=== PATIENT | male | born 1950 | race Caucasian/White ===

== ENCOUNTER → 2017-11-04 | Outpatient (CLI) | payer MEDICARE ==
--- NOTE | 2017-11-04 09:37 | RADIOLOGY REPORT (SQ) ---
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 Images reviewed with lung, soft tissue and bone windows. Reconstructed coronal and sagittal MPR images reviewed. All images stored on PACS. All CT scanners at this facility use dose modulation, iterative reconstruction, and/or weight based d osing when appropriate to reduce radiation dose to as low as reasonably achievable (ALARA). [facility]: Dose Right [facility]: CareDose [facility]: Dose Right [facility]: Teradose 4D [facility]: [employer] CONTRAST TYPE AND DOSE: contrast/concentration: Isovue 370.00 mg/ml; Total Contrast Delivered: 80.0 ml; Total Saline Delivered: 55.0 ml RENAL FUNCTION: Creatinine 1.0 RADIATION DOSE: CT Rad equipment meets quality standard of care and radiation dose reduction techniq ues were employed. CTDIvol: 7.7 mGy. DLP: 300 mGy-cm. . LIMITATIONS: None. FINDINGS: LUNGS AND PLEURA: No opacities, nodules, masses. No pneumothorax. No effusions. HILAR AND MEDIASTINAL STRUCTURES: No identified masses or abnormal nodes. HEART AND VASCULAR STRUCTURES: No aneurysm or dissection. No central pulmonary emboli. No pericardi al effusion. HARDWARE: Right-sided permanent central line tip superior vena cava UPPER ABDOMEN: Normal size spleen at the upper edge of the abdomen. Less than 2 cm nodule in the pos teromedial spleen could correlate with patient's history of CLL. THYROID AND OTHER SOFT TISSUES: Thyroid unremarkable. No bulky axillary or supraclavicular adenopath y. BONES: No significant finding. OTHER: No other significant finding. IMPRESSION: ESSENTIALLY NORMAL CT OF THE CHEST WITH IV CONTRAST. TECHNICAL DOCUMENTATION: JOB ID: [id number] Quality ID # [id number]: Final reports with documentation of one or more dose reduction techniques (e.g., Au tomated exposure control, adjustment of the mA and/or kV according to patient size, use of iterative reconstruction technique) 2010 [employer]- All Rights Reserved Reading location - IP/workstation name: [facility]
== END ==
LOC: RAD 08:11
PROVIDERS: ATTEND Internal Medicine Hematology & Oncology
DX: C91.10 Chronic lymphocytic leukemia of B-cell type not having achieved remission (principal); C43.39 Malignant melanoma of other parts of face
CPT/HCPCS: 71260

== ENCOUNTER → 2018-09-23 | Outpatient (CLI) | payer MEDICARE, OTHER ==
--- NOTE | 2018-09-23 08:23 | RADIOLOGY REPORT (SQ) ---
EXAM DESCRIPTION: CT CHEST WITH COMPLETED DATE/TIME: 09/23/2018 8:06 am REASON FOR STUDY: C91.10 CHRONIC LYMPHOCYTIC LEUK OF B-CELL TYPE NOT ACHIEVE REMIS C91.10 CHRONIC L YMPHOCYTIC LEUK OF B-CELL TYPE NOT ACHIEVE R COMPARISON: 11/04/2017. TECHNIQUE: CT scan of the chest performed using helical scanning technique with dynamic intravenous contrast injection. Images reviewed with lung, soft tissue and bone windows. Reconstructed coronal and sagittal MPR and MIP images reviewed. All images stored on PACS. All CT scanners at this facility use dose modulation, iterative reconstruction, and/or weight based d osing when appropriate to reduce radiation dose to as low as reasonably achievable (ALARA). [facility]: Dose Right [facility]: CareDose [facility]: Dose Right [facility]: Teradose 4D [facility]: [employer] CONTRAST TYPE AND DOSE: contrast/concentration: Isovue 350.00 mg/ml; Total Contrast Delivered: 80.0 ml; Total Saline Delivered: 55.0 ml RENAL FUNCTION: BUN 17 creatinine 0.9. RADIATION DOSE: CT Rad equipment meets quality standard of care and radiation dose reduction techniq ues were employed. CTDIvol: 10.0 mGy. DLP: 385 mGy-cm. . LIMITATIONS: None. FINDINGS: LUNGS AND PLEURA: No opacities, nodules, masses. No pneumothorax. No effusions. HILAR AND MEDIASTINAL STRUCTURES: No identified masses or abnormal nodes. HEART AND VASCULAR STRUCTURES: No aneurysm or dissection. No central pulmonary emboli. No pericardi al effusion. HARDWARE: None in the chest. UPPER ABDOMEN: Small indistinct low-attenuation lesion in the spleen unchanged. Limited exam. THYROID AND OTHER SOFT TISSUES: No masses. No adenopathy. BONES: No significant finding. OTHER: No other significant finding. IMPRESSION: NORMAL CT OF THE CHEST WITH IV CONTRAST. SMALL SPLENIC LESION IS UNCHANGED. TECHNICAL DOCUMENTATION: JOB ID: [id number] Quality ID # [id number]: Final reports with documentation of one or more dose reduction techniques (e.g., Au tomated exposure control, adjustment of the mA and/or kV according to patient size, use of iterative reconstruction technique) 2010 [employer]- All Rights Reserved Reading location - IP/workstation name: [email or web address] LUZ
== END ==
LOC: RAD 09:30
PROVIDERS: ATTEND Internal Medicine Hematology & Oncology
DX: C91.10 Chronic lymphocytic leukemia of B-cell type not having achieved remission (principal); C43.39 Malignant melanoma of other parts of face
CPT/HCPCS: 71260

== ENCOUNTER → 2019-03-24 | Outpatient (CLI) | payer MEDICARE, OTHER ==
--- NOTE | 2019-03-24 09:26 | RADIOLOGY REPORT (SQ) ---
EXAM DESCRIPTION: CT CHEST WITHOUT COMPLETED DATE/TIME: 03/24/2019 8:02 am REASON FOR STUDY: LEUKEMIA (C91.10) C91.10 CHRONIC LYMPHOCYTIC LEUK OF B-CELL TYPE NOT ACHIEVE R COMPARISON: 09/23/2018 TECHNIQUE: CT scan performed of the chest without intravenous contrast. Images reviewed with lung, soft tissue and bone windows. Reconstructed coronal and sagittal MPR images reviewed. All images st ored on PACS. All CT scanners at this facility use dose modulation, iterative reconstruction, and/or weight based d osing when appropriate to reduce radiation dose to as low as reasonably achievable (ALARA). [facility]: Dose Right [facility]: CareDose [facility]: Dose Right [facility]: Teradose 4D [facility]: [employer] RADIATION DOSE: CT Rad equipment meets quality standard of care and radiation dose reduction techniq ues were employed. CTDIvol: 7.9 mGy. DLP: 316 mGy-cm. mGy. LIMITATIONS: No technical limitations. FINDINGS: LUNGS AND PLEURA: No masses, infiltrates, or pneumothorax. No pleural effusions or pleura l calcifications. HILAR AND MEDIASTINAL STRUCTURES: There are small stable mediastinal lymph nodes. These are nonspeci fic. HEART AND VASCULAR STRUCTURES: No aneurysm. No pericardial effusion. UPPER ABDOMEN: Stable in appearance with small hypoattenuating splenic lesion. THYROID AND OTHER SOFT TISSUES: No thyroid lesions. There is bilateral axillary adenopathy. This co uld be reactive or neoplastic. The nodes are slightly larger in size when compared to prior exam. BONES: No significant finding. HARDWARE: None in the chest. OTHER: No other significant findings. IMPRESSION: 1. Bilateral axillary adenopathy slightly increased when compared to prior study. The largest node is on the right and measures 12.1 mm. 2. Small mediastinal lymph nodes also unchanged from prior study. TECHNICAL DOCUMENTATION: JOB ID: [id number] Quality ID # [id number]: Final reports with documentation of one or more dose reduction techniques (e.g., Au tomated exposure control, adjustment of the mA and/or kV according to patient size, use of iterative reconstruction technique) 2010 [employer]- All Rights Reserved Reading location - IP/workstation name: [email or web address]
== END ==
LOC: RAD 07:52
PROVIDERS: ATTEND Internal Medicine Hematology & Oncology
DX: C91.10 Chronic lymphocytic leukemia of B-cell type not having achieved remission (principal)
CPT/HCPCS: 71250

== ENCOUNTER 2020-05-05 16:02 | Inpatient (IN) | payer MEDICARE, OTHER ==
--- NOTE | 2020-05-05 16:14 | ER Document Report ---
ED Medical Screen (RME) - General Chief Complaint: Abdominal Pain Stated Complaint: ABDOMINAL PAIN Time Seen by Provider: 05/05/20 16:08 Primary Care Provider: RIRI CASTRO MD [Primary Care Provider] - Follow up as needed Mode of Arrival: Ambulatory Information source: Patient Notes: Patient presents complaining of abdominal pain for the past week. Patient state s he did have a fever a few days ago but none today. Patient denies any nausea vomiting or diarrhea. Patient denies any urinary symptoms. Reports a history of hypertension, cholesterol, melanoma which is in remission and lymphatic lymphoma which is in remission. I have greeted and performed a rapid initial assessment of this patient. A comprehensive ED assessment and evaluation of the patient, analysis of test results and completion of the medical decision making process will be conducted by additional ED providers. TRAVEL OUTSIDE OF THE [place] IN LAST 30 DAYS: No Physical Exam - Vital signs Vitals: Temp Pulse Resp BP Pulse Ox 98.1 F 55 L 20 157/51 H 100 05/05/20 16:07 05/05/20 16:07 05/05/20 16:07 05/05/20 16:07 05/05/20 16:07 - Abdominal Tenderness: Tender - Lower abdominal tenderness Course - Vital Signs Vital signs: Temp Pulse Resp BP Pulse Ox 98.1 F 55 L 20 157/51 H 100 05/05/20 16:07 05/05/20 16:07 05/05/20 16:07 05/05/20 16:07 05/05/20 16:07 Doctor's Discharge - Discharge Referrals: RIRI CASTRO MD [Primary Care Provider] - Follow up as needed
[2020-05-05 16:57] LABS: APPEARANCE,URINE CLEAR; BILIRUBIN,URINE NEGATIVE (NEGATIVE); COLOR,URINE YELLOW; GLUCOSE, URINE NEGATIVE (NEGATIVE); KETONES,URINE NEGATIVE (NEGATIVE); LEUKOCYTE ESTERASE,URINE NEGATIVE (NEGATIVE); NITRITE,URINE NEGATIVE (NEGATIVE); PROTEIN,URINE NEGATIVE (NEGATIVE); URINE SPECIFIC GRAVITY 1.015; UROBILINOGEN,URINE NEGATIVE mg/dL (<2.0)
[2020-05-05 17:13] LABS: ALBUMIN 3.9 g/dL (3.5-5.0); ALKALINE PHOSPHATASE 64 U/L (38-126); ANION GAP 7 (5-19); ASPARTATE AMINO TRANSFERASE 29 U/L (17-59); BILIRUBIN,DIRECT 0.3 mg/dL (0.0-0.4); BILIRUBIN,TOTAL 0.9 mg/dL (0.2-1.3); BLOOD UREA NITROGEN 14 mg/dL (7-20); CARBON DIOXIDE 29 mmol/L (22-30); CHLORIDE 103 mmol/L (98-107); GLUCOSE 91 mg/dL (75-110); POTASSIUM 4.9 mmol/L (3.6-5.0)
[2020-05-05 17:21] LABS: HEMATOCRIT 37.5 % (37.9-51.0); HEMOGLOBIN 12.9 g/dL (13.5-17.0); MEAN CORPUSCULAR HEMOGLOBIN 31.4 pg (27.0-33.4); MEAN CORPUSCULAR HGB CONC 34.5 g/dL (32.0-36.0); MEAN CORPUSCULAR VOLUME 91 fl (80-97); PLATELET COUNT 127 10^3/uL (150-450); RED BLOOD COUNT 4.11 10^6/uL (4.35-5.55); RED CELL DISTRIBUTION WIDTH 13.8 % (11.5-14.0); WHITE BLOOD COUNT 16.5 10^3/uL (4.0-10.5)
[2020-05-05 17:58] LABS: ABSOLUTE LYMPHOCYTES# (MANUAL) 11.2 10^3/uL (0.5-4.7); ABSOLUTE MONOCYTES # (MANUAL) 0.2 10^3/uL (0.1-1.4); BASOPHILS % (MANUAL) 0 % (0-2); EOSINOPHILS % (MANUAL) 3 % (0-6); MONOCYTES % (MANUAL) 1 % (3-13); OVALOCYTES SLIGHT; POIKILOCYTOSIS SLIGHT; POLYCHROMASIA SLIGHT; SEGMENTED NEUTROPHILS % (MAN) 28 % (42-78); TOTAL CELLS COUNTED 100
[2020-05-05 17:59] LABS: PLATELET COMMENT DECREASED
[2020-05-05 18:01] LABS: LYMPHOCYTES % (MANUAL) 68 % (13-45)
--- NOTE | 2020-05-05 18:07 | ER Document Report ---
ED GI/ - General Chief Complaint: Abdominal Pain Stated Complaint: ABDOMINAL PAIN Time Seen by Provider: 05/05/20 16:08 Primary Care Provider: RIRI CASTRO MD [ACTIVE STAFF] - Follow up as needed Mode of Arrival: Ambulatory Notes: CHIEF COMPLAINT: Abdominal pain HPI: 69-year-old male with history of CLL, hypertension presenting with 1 week of generalized abdominal pain. States initially it felt like he had strained something in the abdomen as he had pain across the entire upper abdomen pain is now more focal in the lower abdomen but still with some discomfort in the upper abdomen denies nausea vomiting or diarrhea. Had a fever up to 101 2 days ago. No history of diverticulitis ROS: See HPI - all other systems were reviewed and are otherwise negative Constitutional: + fever Eyes: no drainage, no blurred vision ENT: no runny nose, no sore throat Cardiovascular: no chest pain Resp: no SOB, no cough GI: no vomiting, no diarrhea, + abdominal pain : no dysuria Integumentary: no rash Allergy: no hives Musculoskeletal: no extremity pain or swelling Neurological: no numbness/tingling, no weakness MEDICATIONS: I agree with the patient medications as charted by the RN. ALLERGIES: I agree with the allergies as charted by the RN. PAST MEDICAL HISTORY/PAST SURGICAL HISTORY: Reviewed and agree as charted by RN. SOCIAL HISTORY: Reviewed and agree as charted by RN. FAMILY HISTORY: No significant familial comorbid conditions directly related to patient complaint EXAM: Reviewed vital signs as charted by RN. CONSTITUTIONAL: Alert and oriented and responds appropriately to questions. Well-appearing; well-nourished HEAD: Normocephalic; atraumatic EYES: PERRL; Conjunctivae clear, sclerae non-icteric ENT: normal nose; no rhinorrhea; moist mucous membranes; pharynx without lesions noted, no uvula edema or deviation, no tonsillar hypertrophy, phonation normal NECK: Supple without meningismus; non-tender; no cervical lymphadenopathy, no masses CARD: RRR; no murmurs, no clicks, no rubs, no gallops; symmetric distal pulses RESP: Normal chest excursion without splinting or tachypnea; breath sounds clear and equal bilaterally; no wheezes, no rhonchi, no rales, pulse oximetry 97% on room air not hypoxic ABD/GI: Obese, normal bowel sounds; non-distended; soft, vague generalized abdominal tenderness on palpation of the abdomen much more focal in the right lower quadrant, no rebound, no guarding; no palpable organomegaly or masses. BACK: The back appears normal and is non-tender to palpation, there is no CVA tenderness EXT: Normal ROM in all joints; non-tender to palpation; no cyanosis, no effusions, no edema SKIN: Normal color for age and race; warm; dry; good turgor; no acute lesions noted NEURO: Moves all extremities equally; Motor and sensory function intact PSYCH: The patient's mood and manner are appropriate. Grooming and personal hygiene are appropriate. MDM: 69-year-old male CLL history generalized abdominal pain for a week subjective fever 2 days ago. Generalized abdominal pain on palpation more focal in the right lower quadrant raising concern for possible appendicitis versus diverticulitis versus perforation. Patient shows a moderate leukocytosis of 16.5, urine does not show evidence of infection. Will obtain CT imaging to e valuate for surgical or infectious pathology TRAVEL OUTSIDE OF THE [place] IN LAST 30 DAYS: No - Related Data Allergies/Adverse Reactions: No Known Allergies Allergy (Unverified 05/05/20 17:42) Past Medical History - General Information source: Patient - Social History Smoking Status: Former Smoker Family History: Reviewed & Not Pertinent Physical Exam - Vital signs Vitals: Temp Pulse Resp BP Pulse Ox 98.1 F 55 L 20 157/51 H 100 05/05/20 16:07 05/05/20 16:07 05/05/20 16:07 05/05/20 16:07 05/05/20 16:07 Course - Re-evaluation Re-evalutation: 05/05/20 21:53 Spoke with the reading radiologist. Spoke with Dr. Alcantara surgery. Dr. Jennifer win will look at the CT and evaluate the patient. Patient's story of progressive pain rotating into the right lower quadrant seems more acute carmelo to appendicitis. The radiologist is still concerned about the tip of the cecum possibly being cancer related given the enlarged liver and spleen and the lymphadenopathy. - Vital Signs Vital signs: Temp Pulse Resp BP Pulse Ox 98.1 F 47 L 18 156/56 H 100 05/05/20 20:33 05/05/20 20:33 05/05/20 20:33 05/05/20 20:33 05/05/20 20:33 - Laboratory Result Diagrams: 05/05/20 16:21 05/05/20 16:21 Laboratory results interpreted by me: 05/05/20 05/05/20 05/05/20 16:21 16:21 16:21 WBC 16.5 H RBC 4.11 L Hgb 12.9 L Hct 37.5 L Plt Count 127 L Seg Neuts % (Manual) 28 L Lymphocytes % (Manual) 68 H Monocytes % (Manual) 1 L Abs Lymphs (Manual) 11.2 H Total Protein 6.0 L Urine Blood SMALL H Discharge - Discharge Clinical Impression: Appendicitis Qualifiers: Appendicitis type: acute appendicitis Acute appendicitis type: with localized peritonitis Appendicitis gangrene presence: without gangrene Appendicitis perforation presence: without perforation Appendicitis abscess presence: without abscess Qualified Code(s): K35.30 - Acute appendicitis with localized peritonitis, without perforation or gangrene Condition: Stable Disposition: ADMITTED INPATIENT Admitting Provider: Surgicalist - Dr. Alcantara Unit Admitted: Surgical Floor Referrals: RIRI CASTRO MD [ACTIVE STAFF] - Follow up as needed
[2020-05-05] MEDS ORDERED: PIPERACILLIN/TAZOBACTAM 3.375 GM VIAL IV ONE (21:14)
--- NOTE | 2020-05-05 21:36 | RADIOLOGY REPORT (SQ) ---
EXAM DESCRIPTION: Contrast-enhanced CT scan of the abdomen and pelvis. CLINICAL HISTORY: 69 years Male; abd pain, focal RLQ TECHNIQUE: CT of the abdomen and pelvis with intravenous contrast.. Oral contrast was used. Delayed imaging of the abdomen and pelvis was also performed. All CT scans at this facility use dose modulation, iterative reconstruction, and/or weight based dosing when appropriate to reduce radiation dose to as low as reasonably achievable. This exam was performed according to our department optimization program which includes automated exposure control, adjustment of the mA and/or kv according to patient size and/or use of iterative reconstruction technique. COMPARISON: None. FINDINGS: Lower chest: Minimal dependent density in the lung bases.Heart size is normal. Abdomen: Liver and biliary tree: The liver is enlarged measuring 19.3 cm in length. There is homogeneous enhancement. Portal vein and hepatic veins are patent. The gallbladder is unremarkable Pancreas: Normal Spleen: The spleen is enlarged measuring 12.4 cm. A subtle low density areas present in the spleen which persist on delayed images and measures 11 mm. There are multiple lymph nodes noted adjacent to the splenic hilum measure up to 16 mm in size. Kidneys: Kidneys are normal in size, shape and position. No stones. No mass or hydronephrosis. Symmetric renal enhancement. On delayed images there is symmetric contrast excretion and the ureters appear normal. Adrenal glands:Within normal limits Vascular structures: Vascular calcifications are present in the aorta. No aneurysm. The mesenteric vessels are patent. Retroperitoneum: Lymph nodes are seen adjacent to the wes hepatis and measure up to 17 mm in size. No retroperitoneal mass Abdominal wall: normal GI: Oral contrast is noted predominantly in the distal small bowel and in the colon. No bowel obstruction. Inflammation is noted involving the tip of the cecum with marked bowel wall thickening. This process extends to and involves the appendix which is not well seen. The appendix does not appear to be dilated and only measures 6 mm. Findings may represent a process such as acute appendicitis. Colonic neoplasm cannot be excluded. General: No free air. No free fluid Pelvis: Lymph nodes: Lymph nodes are present along the external iliac chain predominantly on the right. These measure 12 mm in size. Bladder: Unremarkable. Pelvis: No pelvic mass or adenopathy. Bones: There is mild endplate spondylosis in the spine. No destructive bone lesions. IMPRESSION: 1. Hepatosplenomegaly with nonspecific splenic lesion. 2. Lymphadenopathy within the splenic hilum and at the wes hepatis. There is also pelvic lymphadenopathy. 3. Abnormal appearance of the tip of the cecum which demonstrate marked bowel wall thickening with associated inflammation. This does extend to involve the appendix but the appendix is not well seen. Findings may represent acute appendicitis. Alternatively colon carcinoma might have this appearance. No perforation. No abscess.
[2020-05-05] MEDS ORDERED: NORMAL SALINE 1000 ML 1,000 ML IV ONE (21:41)
--- NOTE | 2020-05-05 23:15 | PDOC H&P ---
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 The patient reports to have had a colonoscopy 5 years ago, and this was negative. The patient has a family history of colon cancer (his father of colon cancer age 71). Past Medical History Cardiac Medical History: Reports: Hypertension Social History Smoking Status: Former Smoker Family History Family History: Reviewed & Not Pertinent, Malignancy - Father of colon cancer Parental Family History Reviewed: Yes - Father of colon cancer Children Family History Reviewed: No Sibling(s) Family History Reviewed.: No Medication/Allergy Allergies/Adverse Reactions: No Known Allergies Allergy (Unverified 05/05/20 17:42) Physical Exam Vital Signs: Temp Pulse Resp BP Pulse Ox 98.1 F 47 L 18 156/56 H 100 05/05/20 20:33 05/05/20 20:33 05/05/20 20:33 05/05/20 20:33 05/05/20 20:33 Intake & Output 05/04/20 05/05/20 05/06/20 06:59 06:59 06:59 Weight 84.2 kg General appearance: PRESENT: mild distress, well-developed, well-nourished Head exam: PRESENT: atraumatic Eye exam: PRESENT: EOMI Mouth exam: PRESENT: neck supple Neck exam: PRESENT: full ROM, other - Right side surgical scar Respiratory exam: PRESENT: clear to auscultation ridge Cardiovascular exam: PRESENT: RRR GI/Abdominal exam: PRESENT: normal bowel sounds, soft, tenderness - Right lower quadrant Rectal exam: PRESENT: deferred Extremities exam: PRESENT: full ROM Musculoskeletal exam: PRESENT: full ROM Neurological exam: PRESENT: alert, awake Psychiatric exam: PRESENT: appropriate affect Skin exam: PRESENT: warm Results Laboratory Results: 05/05/20 16:21 05/05/20 16:21 05/05/20 05/05/20 05/05/20 16:21 16:21 16:21 WBC 16.5 H RBC 4.11 L Hgb 12.9 L Hct 37.5 L MCV 91 MCH 31.4 MCHC 34.5 RDW 13.8 Plt Count 127 L Seg Neutrophils % Not Reportable Sodium 139.3 Potassium 4.9 Chloride 103 Carbon Dioxide 29 Anion Gap 7 BUN 14 Creatinine 0.89 Est GFR ( Amer) > 60 Glucose 91 Calcium 9.0 Total Bilirubin 0.9 AST 29 Alkaline Phosphatase 64 Total Protein 6.0 L Albumin 3.9 Lipase 42.3 Urine Color YELLOW Urine Appearance CLEAR Urine pH 5.0 Ur Specific [place] 1.015 Urine Protein NEGATIVE Urine Glucose (UA) NEGATIVE Urine Ketones NEGATIVE Urine Blood SMALL H Urine Nitrite NEGATIVE Ur Leukocyte Esterase NEGATIVE Urine WBC (Auto) 0 Urine RBC (Auto) 1 Impressions: Abdomen/Pelvis CT 05/05/20 00:00 IMPRESSION: 1. Hepatosplenomegaly with nonspecific splenic lesion. 2. Lymphadenopathy within the splenic hilum and at the wes hepatis. There is also pelvic lymphadenopathy. 3. Abnormal appearance of the tip of the cecum which demonstrate marked bowel wall thickening with associated inflammation. This does extend to involve the appendix but the appendix is not well seen. Findings may represent acute appendicitis. Alternatively colon carcinoma might have this appearance. No perforation. No abscess. Assessment & Plan - Diagnosis (1) Mass of cecum Is this a current diagnosis for this admission?: Yes (2) History of melanoma Is this a current diagnosis for this admission?: Yes (3) Chronic lymphocytic leukemia Is this a current diagnosis for this admission?: Yes - Time Anticipated Discharge Disposition: Home with Home Health Anticipated Discharge Timeframe: Once the patient has fully recovered - Plan Summary Plan Summary: Assessment: Bilateral lower abdominal pain right more than left for about 1 week Physical exam significant for tenderness of the right lower quadrant The scan abdomen pelvis significant for cecal mass versus thickening of the cecal wall With encasement of the appendix, no definite appendicitis History of stage IV melanoma, now treated and melanoma free History of chronic lymphocytic leukemia, now in remission Mild leukocytosis (16.5) most likely related to his CLL Plan: Admit N.p.o. IV fluids Preop EKG Preop chest x-ray Repeat blood work in the morning After long conversation with the patient and , the plan is been formulated as follows: Colonoscopy tomorrow Possible right hemicolectomy following day Colonoscopy procedure, risks, benefits, complications, discussed with the patient, including possibility of bowel perforation, he understands all the abo ve, his questions answered, he decides to proceed. Bowel prep prep will be done overnight.
[2020-05-05] MEDS ORDERED: DEXTROSE 50%-WATER 25 GM/50 ML DISP.SYRIN IV PRN ×2 (23:16)
[2020-05-05] MEDS ORDERED: DEXTROSE 40% GEL 15 GM TUBE PO PRN ×2 (23:16)
[2020-05-05] MEDS ORDERED: GLUCAGON,HUMAN RECOMB 1 MG INJ SUBCUT PRN (23:16)
[2020-05-05] MEDS ORDERED: BISACODYL 5 MG TABEC PO ONE (23:33)
[2020-05-05] MEDS ORDERED: PEG 3350/NA SULF,BICARB,CL/KCL 4000 ML PO ONE (23:34)
--- NOTE | 2020-05-05 23:59 | RADIOLOGY REPORT (SQ) ---
CLINICAL HISTORY: Preop, rule out pneumonia COMPARISON: None. TECHNIQUE: XR CHEST 2 VIEWS 05/05/2020 11:23 PM CDT FINDINGS: Cardiac silhouette is normal in size. Lungs are clear without consolidation, atelectasis, mass or edema. There is no pleural effusion. There is no pneumothorax. There are no acute osseous findings. Right chest port catheter tip is in the upper SVC. IMPRESSION: Clear lungs.
[2020-05-06] MEDS ORDERED: PEG 3350/NA SULF,BICARB,CL/KCL 4000 ML ONE (01:06)
--- NOTE | 2020-05-06 04:01 | PDOC CONSULTATION ---
Consultation Consult Date: 05/05/20 Attending physician:: KEN BEATTY Provider Consulted: SHERLY JUNIOR Consult reason:: Medical clearance History of Present Illness Admission Date/PCP: 05/05/20 22:47 DELBERT MCLEAN PA-C Patient complains of: Abdominal pain History of Present Illness: CLARA GONZALEZ is a 69 year old male who presented emergency room with a one-week history of abdominal pain. He admits the gradual onset and worsening of pain in his abdomen which initially was primarily in the upper abdomen but has now essentially become generalized throughout the abdomen over the course of a week. The pain is a constant moderately intense colicky aching without radiation. Pain has been associated with 1 day of intermittent low-grade fevers which occurred 2 days prior to his ER presentation. He denies other associated or accompanying signs and symptoms. He denies prior similar episodes. He has not identified any aggravating or ameliorating factors for his abdominal pain. In the emergency room he was found to have an abnormally thickened cecum and surge ry was consulted by the emergency room physician. Dr. Beatty evaluated the patient and plans to do a colonoscopy followed by a probable right hemicolectomy. The hospital service has been consulted for medical clearance. Past Medical History Cardiac Medical History: Reports: Hyperlipidema - Hypercholesterolemia, Hypertension Denies: Atrial Fibrillation, Coronary Artery Disease, DVT, Myocardial Infarction, Peripheral Vascular Disease, Pulmonary Embolism Pulmonary Medical History: Denies: Asthma, Chronic Obstructive Pulmonary Disease (COPD) EENT Medical History: Denies: Cataracts, Ears - Hearing aids Neurological Medical History: Denies: Hemorrhagic CVA, Ischemic CVA, Seizures Endocrine Medical History: Denies: Diabetes Mellitus Type 1, Diabetes Mellitus Type 2, Hyperthyroidism, Hypothyroidism, Obesity Renal/ Medical History: Denies: Chronic Kidney Disease, Nephrolithiasis Malignancy Medical History: Reports: Leukemia - Chronic lymphocytic leukemia, Skin Cancer - Malignant melanoma GI Medical History: Denies: Cirrhosis, Crohn's Disease, Diverticulitis, Gastroesophageal Reflux Disease, Hepatitis, Peptic Ulcer Disease, Ulcerative Colitis Musculoskeltal Medical History: Denies: Fibromyalgia, Gout Skin Medical History: Denies: Eczema, Psoriasis Psychiatric Medical History: Reports: Bipolar Disorder Denies: Alcohol Dependency, Substance Abuse, Tobacco Dependency Traumatic Medical History: Reports: None Hematology: Denies: Anemia, Bleeding Tendencies Infectious Medical History: Reports: None Past Surgical History Past Surgical History: Reports: Other - Colonoscopy, excision of malignant melanoma Social History Information Source: Patient Lives with: Spouse/Significant other Smoking Status: Former Smoker Electronic Cigarette use?: No Frequency of Alcohol Use: Occasional Hx Recreational Drug Use: No Drugs: None Hx Prescription Drug Abuse: No - Advance Directive Resuscitation Status: Full Code Surrogate healthcare decision maker:: Bert Gonzalez Family History Family History: Malignancy - Colon cancer Parental Family History Reviewed: Yes Children Family History Reviewed: No Sibling(s) Family History Reviewed.: No Medication/Allergy Allergies/Adverse Reactions: No Known Allergies Allergy (Unverified 05/05/20 17:42) Review of Systems Constitutional: PRESENT: as per HPI, fever(s). ABSENT: chills Eyes: ABSENT: visual disturbances, other - Eye pain Ears: ABSENT: hearing changes, other - Ear pain Nose, Mouth, and Throat: ABSENT: headache(s), sore throat Cardiovascular: ABSENT: chest pain, palpitations Respiratory: ABSENT: cough, dyspnea Gastrointestinal: PRESENT: as per HPI, abdominal pain. ABSENT: constipation, diarrhea, hematochezia, melena, nausea, vomiting Genitourinary: ABSENT: dysuria, hematuria Musculoskeletal: ABSENT: back pain, joint swelling Integumentary: ABSENT: pruritus, rash Neurological: ABSENT: confusion, convulsions, focal weakness, memory loss, syncope Psychiatric: ABSENT: anxiety, depression Endocrine: ABSENT: cold intolerance, heat intolerance Hematologic/Lymphatic: ABSENT: easy bleeding, easy bruising Allergic/Immunologic: ABSENT: seasonal rhinorrhea Physical Exam Vital Signs: Temp Pulse Resp BP Pulse Ox 98.5 F 46 L 18 142/56 H 96 05/06/20 00:12 05/06/20 00:12 05/06/20 00:12 05/06/20 00:12 05/06/20 00:12 Intake & Output 05/04/20 05/05/20 05/06/20 23:59 23:59 23:59 Weight 84.2 kg General appearance: PRESENT: no acute distress, cooperative Head exam: PRESENT: atraumatic, normocephalic Eye exam: PRESENT: conjunctiva pink. ABSENT: conjunctival injection, scleral icterus Ear exam: PRESENT: normal external ear exam. ABSENT: bleeding, drainage Mouth exam: PRESENT: dry mucosa, neck supple Neck exam: ABSENT: thyromegaly, tracheal deviation Respiratory exam: PRESENT: clear to auscultation ridge, symmetrical, unlabored Cardiovascular exam: PRESENT: RRR. ABSENT: clicks, gallop, rubs Pulses: PRESENT: normal radial pulses, normal dorsalis pedis pul Vascular exam: PRESENT: normal capillary refill. ABSENT: pallor GI/Abdominal exam: PRESENT: normal bowel sounds, soft, tenderness - Moderate lower abdominal tenderness greater on the right than left without point localization. Rectal exam: PRESENT: deferred Extremities exam: ABSENT: joint swelling, pedal edema Musculoskeletal exam: ABSENT: deformity, dislocation Neurological exam: PRESENT: alert, oriented to person, oriented to place, orient ed to time, oriented to situation, CN II-XII grossly intact. ABSENT: motor sensory deficit Psychiatric exam: PRESENT: appropriate affect, normal mood Skin exam: PRESENT: dry, intact, warm. ABSENT: jaundice, rash, urticaria Results Laboratory Results: 05/05/20 16:21 05/05/20 16:21 05/05/20 05/05/20 05/05/20 16:21 16:21 16:21 WBC 16.5 H RBC 4.11 L Hgb 12.9 L Hct 37.5 L MCV 91 MCH 31.4 MCHC 34.5 RDW 13.8 Plt Count 127 L Seg Neutrophils % Not Reportable Sodium 139.3 Potassium 4.9 Chloride 103 Carbon Dioxide 29 Anion Gap 7 BUN 14 Creatinine 0.89 Est GFR ( Amer) > 60 Glucose 91 Calcium 9.0 Total Bilirubin 0.9 AST 29 Alkaline Phosphatase 64 Total Protein 6.0 L Albumin 3.9 Lipase 42.3 Urine Color YELLOW Urine Appearance CLEAR Urine pH 5.0 Ur Specific [place] 1.015 Urine Protein NEGATIVE Urine Glucose (UA) NEGATIVE Urine Ketones NEGATIVE Urine Blood SMALL H Urine Nitrite NEGATIVE Ur Leukocyte Esterase NEGATIVE Urine WBC (Auto) 0 Urine RBC (Auto) 1 Impressions: Abdomen/Pelvis CT 05/05/20 00:00 IMPRESSION: 1. Hepatosplenomegaly with nonspecific splenic lesion. 2. Lymphadenopathy within the splenic hilum and at the wes hepatis. There is also pelvic lymphadenopathy. 3. Abnormal appearance of the tip of the cecum which demonstrate marked bowel wall thickening with associated inflammation. This does extend to involve the appendix but the appendix is not well seen. Findings may represent acute appendicitis. Alternatively colon carcinoma might have this appearance. No perforation. No abscess. Chest X-Ray 05/05/20 23:23 IMPRESSION: Clear lungs. Assessment and Plan - Diagnosis (1) Abnormal computed tomography of cecum and terminal ileum Is this a current diagnosis for this admission?: Yes (2) Essential hypertension Is this a current diagnosis for this admission?: Yes (3) Hypercholesterolemia Is this a current diagnosis for this admission?: Yes (4) History of melanoma Is this a current diagnosis for this admission?: Yes (5) Chronic lymphocytic leukemia Is this a current diagnosis for this admission?: Yes (6) Bipolar 1 disorder Is this a current diagnosis for this admission?: Yes - Plan Summary Summary: Patient is medically cleared for the surgical procedures of colonoscopy with or without biopsy and a right hemicolectomy/total colectomy. Patient may be cont inued on his usual medications postoperatively as appropriate. During the patient's mild thrombocytopenia his future IV antibiotic therapy should be changed to cefepime in favor of Zosyn. While the patient is n.p.o. medical control for hypertension will be provided with intravenous metoprolol and/or hydralazine. Additional laboratory and/or radiographic evaluations will be obtained as needed. Patient will use Ativan 1 mg IV every 4 hours as needed for anxiety or restlessness. Patient will use morphine sulfate 2 to 4 mg IV every 2 hours as needed for pain. The hospital service will follow as needed. - Time Time Spent with patient: Less than 15 minutes Medications reviewed and adjusted accordingly: Yes Anticipated Discharge Disposition: Home, Self Care Anticipated Discharge Timeframe: To be determined - Inpatient Certification Based on my medical assessment, after consideration of the patient's comorbidities, presenting symptoms, or acuity I expect that the services needed warrant INPATIENT care.: Yes I certify that my determination is in accordance with my understanding of Medicare's requirements for reasonable and necessary INPATIENT services [42 CFR 412.3e].: Yes Medical Necessity: Need for Pain Control, Need for Surgery
[2020-05-06] MEDS ORDERED: METOPROLOL TARTRATE PF/INJ 5 MG/5 ML SDV IV PRN (04:14)
[2020-05-06] MEDS ORDERED: HYDRALAZINE HCL INJ/PF 20 MG/1 ML SDV IV PRN (04:14)
[2020-05-06] MEDS ORDERED: LORAZEPAM INJ 2 MG/1 ML VIAL IV PRN (04:14)
[2020-05-06 05:58] LABS: HEMATOCRIT 34.1 % (37.9-51.0); HEMOGLOBIN 11.8 g/dL (13.5-17.0); MEAN CORPUSCULAR HEMOGLOBIN 31.5 pg (27.0-33.4); MEAN CORPUSCULAR HGB CONC 34.7 g/dL (32.0-36.0); MEAN CORPUSCULAR VOLUME 91 fl (80-97); PLATELET COUNT 107 10^3/uL (150-450); RED BLOOD COUNT 3.76 10^6/uL (4.35-5.55); RED CELL DISTRIBUTION WIDTH 13.8 % (11.5-14.0); WHITE BLOOD COUNT 13.1 10^3/uL (4.0-10.5)
[2020-05-06 06:18] LABS: ANION GAP 8 (5-19); BLOOD UREA NITROGEN 11 mg/dL (7-20); CALCIUM 8.4 mg/dL (8.4-10.2); CARBON DIOXIDE 23 mmol/L (22-30); CHLORIDE 107 mmol/L (98-107); GLUCOSE 100 mg/dL (75-110); POTASSIUM 4.2 mmol/L (3.6-5.0)
[2020-05-06 06:19] LABS: ABSOLUTE LYMPHOCYTES# (MANUAL) 8.9 10^3/uL (0.5-4.7); ABSOLUTE MONOCYTES # (MANUAL) 0.3 10^3/uL (0.1-1.4); BASOPHILS % (MANUAL) 0 % (0-2); EOSINOPHILS % (MANUAL) 0 % (0-6); LYMPHOCYTES % (MANUAL) 65 % (13-45); MONOCYTES % (MANUAL) 2 % (3-13); SEGMENTED NEUTROPHILS % (MAN) 30 % (42-78); TOTAL CELLS COUNTED 100
[2020-05-06 06:21] LABS: BURR CELLS SLIGHT; PLATELET COMMENT DECREASED; TEAR DROP CELLS SLIGHT; TOXIC GRANULATION 1+; TOXIC VACUOLATION PRESENT
--- NOTE | 2020-05-06 07:59 | PDOC PROGRESS REPORT ---
Subjective Progress Note for:: 05/06/20 Subjective:: No complaints Reason For Visit: RIGHT COLON CANCER Physical Exam Vital Signs: Temp Pulse Resp BP Pulse Ox 98.5 F 46 L 18 142/56 H 96 05/06/20 00:12 05/06/20 00:12 05/06/20 00:12 05/06/20 00:12 05/06/20 00:12 Intake & Output 05/05/20 05/06/20 05/07/20 06:59 06:59 06:59 Output Total 400 Balance -400 Weight 84.2 kg General appearance: PRESENT: no acute distress Respiratory exam: PRESENT: clear to auscultation ridge Cardiovascular exam: PRESENT: RRR GI/Abdominal exam: PRESENT: soft, tenderness - Right lower quadrant Results Laboratory Results: 05/06/20 05:32 05/06/20 05:32 05/05/20 05/05/20 05/05/20 16:21 16:21 16:21 WBC 16.5 H RBC 4.11 L Hgb 12.9 L Hct 37.5 L MCV 91 MCH 31.4 MCHC 34.5 RDW 13.8 Plt Count 127 L Seg Neutrophils % Not Reportable Sodium 139.3 Potassium 4.9 Chloride 103 Carbon Dioxide 29 Anion Gap 7 BUN 14 Creatinine 0.89 Est GFR ( Amer) > 60 Glucose 91 Calcium 9.0 Total Bilirubin 0.9 AST 29 Alkaline Phosphatase 64 Total Protein 6.0 L Albumin 3.9 Lipase 42.3 Urine Color YELLOW Urine Appearance CLEAR Urine pH 5.0 Ur Specific [place] 1.015 Urine Protein NEGATIVE Urine Glucose (UA) NEGATIVE Urine Ketones NEGATIVE Urine Blood SMALL H Urine Nitrite NEGATIVE Ur Leukocyte Esterase NEGATIVE Urine WBC (Auto) 0 Urine RBC (Auto) 1 05/06/20 05/06/20 05:32 05:32 WBC 13.1 H RBC 3.76 L Hgb 11.8 L Hct 34.1 L MCV 91 MCH 31.5 MCHC 34.7 RDW 13.8 Plt Count 107 L Seg Neutrophils % Not Reportable Sodium 138.3 Potassium 4.2 Chloride 107 Carbon Dioxide 23 Anion Gap 8 BUN 11 Creatinine 0.83 Est GFR ( Amer) > 60 Glucose 100 Calcium 8.4 Total Bilirubin AST Alkaline Phosphatase Total Protein Albumin Lipase Urine Color Urine Appearance Urine pH Ur Specific [place] Urine Protein Urine Glucose (UA) Urine Ketones Urine Blood Urine Nitrite Ur Leukocyte Esterase Urine WBC (Auto) Urine RBC (Auto) Impressions: Abdomen/Pelvis CT 05/05/20 00:00 IMPRESSION: 1. Hepatosplenomegaly with nonspecific splenic lesion. 2. Lymphadenopathy within the splenic hilum and at the wes hepatis. There is also pelvic lymphadenopathy. 3. Abnormal appearance of the tip of the cecum which demonstrate marked bowel wall thickening with associated inflammation. This does extend to involve the appendix but the appendix is not well seen. Findings may represent acute appendicitis. Alternatively colon carcinoma might have this appearance. No perforation. No abscess. Chest X-Ray 05/05/20 23:23 IMPRESSION: Clear lungs. 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
--- NOTE | 2020-05-06 08:37 | PDOC CONSULTATION ---
Consultation Consult Date: 05/06/20 Provider Consulted: RIRI CASTRO Consult reason:: Hematology/Oncology consultation was requested by Dr. Alcantara for patient well known to me with history of melanoma and new cecal mass. History of Present Illness Admission Date/PCP: 05/05/20 22:47 DELBERT MCLEAN PA-C History of Present Illness: CLARA APARICIO is a 69 year old male who presented emergency room with a one-week history of abdominal pain. He admits the gradual onset and worsening of pain in his abdomen which initially was primarily in the upper abdomen but has now essentially become generalized throughout the abdomen over the course of a week. The pain is a constant moderately intense colicky aching without radiation. Pain has been associated with 1 day of intermittent low-grade fevers which occurred 2 days prior to his ER presentation. He denies other associated or accompanying signs and symptoms. He denies prior similar episodes. He has not identified any aggravating or ameliorating factors for his abdominal pain. In the emergency room he was found to have an abnormally thickened cecum and surgery was consulted. Dr. Alcantara evaluated the patient and plans to do a colonoscopy followed by a probable right hemicolectomy. He was diagnosed with melanoma Stage IIIB in 06/2015, underwent surgery, chemo, and immunotherapy and has been without evidence of any disease sinve 09/2018. He also has been treated for CLL with ITP with Rituxan in 2018 with good response and has been monitored without evidence of active disease since that time. Past Medical History Cardiac Medical History: Reports: Hyperlipidema - Hypercholesterolemia, Hypertension Denies: Atrial Fibrillation, Coronary Artery Disease, DVT, Myocardial Infarction, Peripheral Vascular Disease, Pulmonary Embolism Pulmonary Medical History: Reports: Sleep Apnea Denies: Asthma, Chronic Obstructive Pulmonary Disease (COPD) EENT Medical History: Denies: Cataracts, Ears - Hearing aids Neurological Medical History: Denies: Hemorrhagic CVA, Ischemic CVA, Seizures Endocrine Medical History: Denies: Diabetes Mellitus Type 1, Diabetes Mellitus Type 2, Hyperthyroidism, Hypothyroidism, Obesity Renal/ Medical History: Denies: Chronic Kidney Disease, Nephrolithiasis Malignancy Medical History: Reports: Leukemia - Chronic lymphocytic leukemia, Skin Cancer - Malignant melanoma GI Medical History: Denies: Cirrhosis, Crohn's Disease, Diverticulitis, Gastroesophageal Reflux Disease, Hepatitis, Peptic Ulcer Disease, Ulcerative Colitis Musculoskeltal Medical History: Denies: Fibromyalgia, Gout Skin Medical History: Denies: Eczema, Psoriasis Psychiatric Medical History: Reports: Bipolar Disorder Denies: Alcohol Dependency, Substance Abuse, Tobacco Dependency Traumatic Medical History: Reports: None Hematology: Reports: Other - ITP Denies: Anemia, Bleeding Tendencies Infectious Medical History: Reports: None Past Surgical History Past Surgical History: Reports: Other - Colonoscopy 2015, excision of malignant melanoma 10/2015. Port placement Social History Information Source: Patient Lives with: Spouse/Significant other Smoking Status: Former Smoker Electronic Cigarette use?: No Frequency of Alcohol Use: Occasional Hx Recreational Drug Use: No Drugs: None Hx Prescription Drug Abuse: No Past Social History Note: with 3 boys and 2 grandchildren. - Advance Directive Resuscitation Status: Full Code Family History Family History: Malignancy - Colon cancer Parental Family History Reviewed: Yes - Mother of CAD at age 94. Father Colon cancer age 74. Children Family History Reviewed: No Sibling(s) Family History Reviewed.: Yes Medication/Allergy Allergies/Adverse Reactions: No Known Allergies Allergy (Unverified 05/05/20 17:42) Review of Systems Constitutional: ABSENT: fever(s), headache(s) Eyes: ABSENT: visual disturbances Ears: ABSENT: hearing changes Nose, Mouth, and Throat: ABSENT: sore throat Cardiovascular: ABSENT: chest pain Respiratory: ABSENT: dyspnea Gastrointestinal: PRESENT: abdominal pain Genitourinary: ABSENT: dysuria Integumentary: ABSENT: rash Neurological: PRESENT: weakness Hematologic/Lymphatic: ABSENT: easy bleeding Physical Exam Vital Signs: Temp Pulse Resp BP Pulse Ox 98.5 F 46 L 18 142/56 H 96 05/06/20 00:12 05/06/20 00:12 05/06/20 00:12 05/06/20 00:12 05/06/20 00:12 Intake & Output 05/05/20 05/06/20 05/07/20 06:59 06:59 06:59 Output Total 400 Balance -400 Weight 84.2 kg General appearance: PRESENT: no acute distress, well-developed, well-nourished Exam: 69 year old male. Head exam: PRESENT: atraumatic, normocephalic Eye exam: PRESENT: EOMI Mouth exam: PRESENT: tongue midline Neck exam: ABSENT: JVD Respiratory exam: PRESENT: unlabored Cardiovascular exam: ABSENT: tachycardia GI/Abdominal exam: PRESENT: tenderness Extremities exam: ABSENT: pedal edema Musculoskeletal exam: PRESENT: normal inspection Neurological exam: PRESENT: alert, awake, oriented to person, oriented to place, oriented to time, oriented to situation Psychiatric exam: PRESENT: appropriate affect Skin exam: PRESENT: normal color Results Laboratory Results: 05/06/20 05:32 05/06/20 05:32 05/05/20 05/05/20 05/05/20 16:21 16:21 16:21 WBC 16.5 H RBC 4.11 L Hgb 12.9 L Hct 37.5 L MCV 91 MCH 31.4 MCHC 34.5 RDW 13.8 Plt Count 127 L Seg Neutrophils % Not Reportable Sodium 139.3 Potassium 4.9 Chloride 103 Carbon Dioxide 29 Anion Gap 7 BUN 14 Creatinine 0.89 Est GFR ( Amer) > 60 Glucose 91 Calcium 9.0 Total Bilirubin 0.9 AST 29 Alkaline Phosphatase 64 Total Protein 6.0 L Albumin 3.9 Lipase 42.3 Urine Color YELLOW Urine Appearance CLEAR Urine pH 5.0 Ur Specific [place] 1.015 Urine Protein NEGATIVE Urine Glucose (UA) NEGATIVE Urine Ketones NEGATIVE Urine Blood SMALL H Urine Nitrite NEGATIVE Ur Leukocyte Esterase NEGATIVE Urine WBC (Auto) 0 Urine RBC (Auto) 1 05/06/20 05/06/20 05:32 05:32 WBC 13.1 H RBC 3.76 L Hgb 11.8 L Hct 34.1 L MCV 91 MCH 31.5 MCHC 34.7 RDW 13.8 Plt Count 107 L Seg Neutrophils % Not Reportable Sodium 138.3 Potassium 4.2 Chloride 107 Carbon Dioxide 23 Anion Gap 8 BUN 11 Creatinine 0.83 Est GFR ( Amer) > 60 Glucose 100 Calcium 8.4 Total Bilirubin AST Alkaline Phosphatase Total Protein Albumin Lipase Urine Color Urine Appearance Urine pH Ur Specific [place] Urine Protein Urine Glucose (UA) Urine Ketones Urine Blood Urine Nitrite Ur Leukocyte Esterase Urine WBC (Auto) Urine RBC (Auto) Impressions: Abdomen/Pelvis CT 05/05/20 00:00 IMPRESSION: 1. Hepatosplenomegaly with nonspecific splenic lesion. 2. Lymphadenopathy within the splenic hilum and at the wes hepatis. There is also pelvic lymphadenopathy. 3. Abnormal appearance of the tip of the cecum which demonstrate marked bowel wall thickening with associated inflammation. This does extend to involve the appendix but the appendix is not well seen. Findings may represent acute appendicitis. Alternatively colon carcinoma might have this appearance. No perforation. No abscess. Chest X-Ray 05/05/20 23:23 IMPRESSION: Clear lungs. Status: Image reviewed by me Assessment & Plan - Diagnosis (1) Abnormal computed tomography of cecum and terminal ileum Is this a current diagnosis for this admission?: Yes Plan: Agree with plans as per Surgery. Patient was discussed at length with Dr. Alcantara. I will check CEA level today for baseline. (2) Chronic lymphocytic leukemia Is this a current diagnosis for this admission?: Yes Plan: Currently very stable. No treatment indicated at this time. I will be happy to continue to follow. (3) History of melanoma Is this a current diagnosis for this admission?: Yes Plan: No evidence of disease for over a year. (4) Thrombocytopenia Is this a current diagnosis for this admission?: Yes Plan: This has been mild and due to ITP and CLL. Consider Rituxan for PLT <50. I will be happy to continue to monitor. - Plan Summary Plan Summary: Patient was discussed with Dr. Alcantara. Labs and radiology were reviewed. Claudia barrow call with any questions or concerns. I will be happy to review pathology report with patient once available.
[2020-05-06] MEDS ORDERED: PROPOFOL INJ 200 MG/20 ML VIAL IV ONE ×2 (10:40→11:25)
[2020-05-06] MEDS ORDERED: LIDOCAINE 2% INJ-PF (100 MG/5 ML) SYRINGE ONE (10:41)
--- NOTE | 2020-05-06 11:53 | Operative Report ---
Operative Report DATE OF SURGERY: 05/06/20 PREOPERATIVE DIAGNOSIS: cecal mass POSTOPERATIVE DIAGNOSIS: same; negative colonoscopy OPERATION: Colonoscopy to cecum SURGEON: KEN BEATTY ANESTHESIA: LMAC TISSUE REMOVED OR ALTERED: None COMPLICATIONS: None ESTIMATED BLOOD LOSS: Not applicable INTRAOPERATIVE FINDINGS: Normal colonoscopy to cecum PROCEDURE: The colonoscopy was performed in the endoscopy suite, the patient was placed in the lateral decubitus, and IV sedation was provided by the anesthesiologist. The scope was inserted into the rectum and the several segments of the colon up to the cecum. The preparation was good: no masses, polyps, strictures, mucosal changes, and diverticula were noted. The cecum was carefully examined and no masses, polyps, lesions, ulcerations, blood, were identified. The ileocecal valve appeared to be normal in appearance. No biopsies were taken. At the level of the rectum, the scope was retroflexed and no lesions were identified and no hemorrhoids seen. The scope was then slowly withdrawn from the cecum to rectum for a duration of approximately 15 minutes and extracted from the rectum. The patient tolerated procedure well and transferred to the recovery room in satisfactory conditions.
[2020-05-06] MEDS ORDERED: NORMAL SALINE 250 ML IV PRN (12:18)
[2020-05-06] MEDS: LISINOPRIL 10 MG TABLET PO SCH (13:36)
[2020-05-06] MEDS: SERTRALINE HCL 50 MG TABLET PO SCH (13:36)
[2020-05-06] MEDS: DIVALPROEX SODIUM 250 MG TABLET.DR PO SCH ×2 (13:42→14:04)
[2020-05-06 13:50] LABS: PATH REVIEW PATHOLOGIST REVIEWED
[2020-05-06] MEDS: NA PHOS,M-B/NA PHOS,DI-BA (ADULT) 133 ML ENEMA PR SCH (14:05)
[2020-05-06] MEDS ORDERED: PEG 3350/NA SULF,BICARB,CL/KCL 4000 ML PO ONE (15:00)
[2020-05-06] MEDS ORDERED: NEOMYCIN SULFATE 500 MG TABLET PO SCH (15:00)
[2020-05-06] MEDS ORDERED: ERYTHROMYCIN BASE 250 MG TABLET PO SCH (15:00)
[2020-05-06] MEDS ORDERED: ERYTHROMYCIN BASE 250 MG TABLET PO ONE (15:00)
[2020-05-06] MEDS ORDERED: CEFOXITIN SODIUM 2 GM in DEXTROSE 5%-WATER 100 ML IV ONE (15:15)
--- NOTE | 2020-05-06 16:03 | PDOC PROGRESS REPORT ---
Subjective Subjective:: Per Previous Physician: "CLARA APARICIO is a 69 year old male who presented emergency room with a one- week history of abdominal pain. He admits the gradual onset and worsening of pain in his abdomen which initially was primarily in the upper abdomen but has now essentially become generalized throughout the abdomen over the course of a week. The pain is a constant moderately intense colicky aching without radiation. Pain has been associated with 1 day of intermittent low-grade fevers which occurred 2 days prior to his ER presentation. He denies other associated or accompanying signs and symptoms. He denies prior similar episodes. He has not identified any aggravating or ameliorating factors for his abdominal pain. In the emergency room he was found to have an abnormally thickened cecum and surgery was consulted by the emergency room physician. Dr. Alcantara evaluated the patient and plans to do a colonoscopy followed by a probable right hemicolectomy. The hospital service has been consulted for medical clearance." Seen and evaluated patient today. Patient states his surgery is being planned for Saturday. Patient underwent colonoscopy today which did not reveal any abnormalities. Patient was given a dose of Zosyn and cefoxitin since admission. General surgery has continued him on erythromycin p.o. 3 times daily starting on 05/08. Patient has history of ITP and CLL and hematology has been consulted. White blood cell count is going down as her platelets. CEA level normal. Patient has no specific complaints today. Reason For Visit: RIGHT COLON CANCER Physical Exam Vital Signs: Temp Pulse Resp BP Pulse Ox 98.3 F 42 L 17 124/55 L 96 05/06/20 11:35 05/06/20 12:05 05/06/20 12:05 05/06/20 12:05 05/06/20 12:05 Intake & Output 05/05/20 05/06/20 05/07/20 06:59 06:59 06:59 Intake Total 400 Output Total 400 Balance -400 400 Weight 84.2 kg General appearance: PRESENT: no acute distress, well-developed, well-nourished Head exam: PRESENT: atraumatic, normocephalic Eye exam: PRESENT: conjunctiva pink. ABSENT: scleral icterus Mouth exam: PRESENT: moist Respiratory exam: PRESENT: clear to auscultation ridge. ABSENT: rales, rhonchi, wheezes Cardiovascular exam: PRESENT: RRR. ABSENT: diastolic murmur, rubs, systolic murmur GI/Abdominal exam: PRESENT: normal bowel sounds, soft. ABSENT: distended, guarding, mass, organolmegaly, rebound, tenderness Rectal exam: PRESENT: deferred Neurological exam: PRESENT: alert, awake, oriented to person, oriented to place, oriented to time, oriented to situation Psychiatric exam: PRESENT: appropriate affect, normal mood Skin exam: PRESENT: dry, intact, warm Results Laboratory Results: 05/06/20 05:32 05/06/20 05:32 05/05/20 05/05/20 05/05/20 16:21 16:21 16:21 WBC 16.5 H RBC 4.11 L Hgb 12.9 L Hct 37.5 L MCV 91 MCH 31.4 MCHC 34.5 RDW 13.8 Plt Count 127 L Seg Neutrophils % Not Reportable Sodium 139.3 Potassium 4.9 Chloride 103 Carbon Dioxide 29 Anion Gap 7 BUN 14 Creatinine 0.89 Est GFR ( Amer) > 60 Glucose 91 Calcium 9.0 Total Bilirubin 0.9 AST 29 Alkaline Phosphatase 64 Total Protein 6.0 L Albumin 3.9 Lipase 42.3 Urine Color YELLOW Urine Appearance CLEAR Urine pH 5.0 Ur Specific [place] 1.015 Urine Protein NEGATIVE Urine Glucose (UA) NEGATIVE Urine Ketones NEGATIVE Urine Blood SMALL H Urine Nitrite NEGATIVE Ur Leukocyte Esterase NEGATIVE Urine WBC (Auto) 0 Urine RBC (Auto) 1 05/06/20 05/06/20 05:32 05:32 WBC 13.1 H RBC 3.76 L Hgb 11.8 L Hct 34.1 L MCV 91 MCH 31.5 MCHC 34.7 RDW 13.8 Plt Count 107 L Seg Neutrophils % Not Reportable Sodium 138.3 Potassium 4.2 Chloride 107 Carbon Dioxide 23 Anion Gap 8 BUN 11 Creatinine 0.83 Est GFR ( Amer) > 60 Glucose 100 Calcium 8.4 Total Bilirubin AST Alkaline Phosphatase Total Protein Albumin Lipase Urine Color Urine Appearance Urine pH Ur Specific [place] [place] Urine Protein Urine Glucose (UA) Urine Ketones Urine Blood Urine Nitrite Ur Leukocyte Esterase Urine WBC (Auto) Urine RBC (Auto) Impressions: Abdomen/Pelvis CT 05/05/20 00:00 IMPRESSION: 1. Hepatosplenomegaly with nonspecific splenic lesion. 2. Lymphadenopathy within the splenic hilum and at the wes hepatis. There is also pelvic lymphadenopathy. 3. Abnormal appearance of the tip of the cecum which demonstrate marked bowel wall thickening with associated inflammation. This does extend to involve the appendix but the appendix is not well seen. Findings may represent acute appendicitis. Alternatively colon carcinoma might have this appearance. No perforation. No abscess. Chest X-Ray 05/05/20 23:23 IMPRESSION: Clear lungs. Assessment and Plan - Diagnosis (1) Abnormal computed tomography of cecum and terminal ileum Is this a current diagnosis for this admission?: Yes Plan: Seen on CT abdomen/pelvis on admission, showed possible appendicitis versus colon carcinoma at the tip of the cecum, nonspecific findings Colonoscopy essentially normal General surgery planning right-sided hemicolectomy Medicine consult for management of chronic medical problems Hematology/oncology consulted, followed by Dr. Egan (2) Bipolar 1 disorder Is this a current diagnosis for this admission?: Yes Plan: Home medications continued (3) Chronic lymphocytic leukemia Is this a current diagnosis for this admission?: Yes Plan: Oncology consulted and following (4) Essential hypertension Is this a current diagnosis for this admission?: Yes Plan: Stable (5) History of melanoma Is this a current diagnosis for this admission?: Yes (6) Hypercholesterolemia Is this a current diagnosis for this admission?: Yes Plan: Statin continued - Plan Summary Summary: Patient is medically cleared for the surgical procedures of colonoscopy with or without biopsy and a right hemicolectomy/total colectomy. Patient may be continued on his usual medications postoperatively as appropriate. During the patient's mild thrombocytopenia his future IV antibiotic therapy should be changed to cefepime in favor of Zosyn. While the patient is n.p.o. medical control for hypertension will be provided with intravenous metoprolol and/or hydralazine. Additional laboratory and/or radiographic evaluations will be obtained as needed. Patient will use Ativan 1 mg IV every 4 hours as needed for anxiety or restlessness. Patient will use morphine sulfate 2 to 4 mg IV every 2 hours as needed for pain. The hospital service will follow as needed. - Time Time Spent with patient: 15-24 minutes Medications reviewed and adjusted accordingly: Yes Anticipated Discharge Disposition: Home, Self Care Anticipated Discharge Timeframe: within 72 hours
[2020-05-06] MEDS ORDERED: DIVALPROEX SODIUM 250 MG TABLET.DR PO SCH ×2 (22:00)
[2020-05-07 06:16] LABS: ANION GAP 6 (5-19); BLOOD UREA NITROGEN 10 mg/dL (7-20); CALCIUM 8.2 mg/dL (8.4-10.2); CARBON DIOXIDE 25 mmol/L (22-30); CHLORIDE 109 mmol/L (98-107); GLUCOSE 103 mg/dL (75-110); POTASSIUM 4.1 mmol/L (3.6-5.0)
[2020-05-07] MEDS ORDERED: INFLUENZA QUAD (6MOS+) 2020-21 VAC 0.5 ML SYR IM ONE (08:00)
[2020-05-07] MEDS: NA PHOS,M-B/NA PHOS,DI-BA (ADULT) 133 ML ENEMA PR SCH (09:19)
[2020-05-07] MEDS: SERTRALINE HCL 50 MG TABLET PO SCH (09:26)
[2020-05-07] MEDS: LISINOPRIL 10 MG TABLET PO SCH (09:26)
[2020-05-07] MEDS ORDERED: DIVALPROEX SODIUM 125 MG CAP.SPRINK PO SCH ×2 (10:00)
[2020-05-07] MEDS ORDERED: DIVALPROEX SODIUM 250 MG TABLET.DR PO SCH (10:00)
[2020-05-07] MEDS ORDERED: (PENDING PHARMACY ID) (Sertraline Hcl [Sertraline Hcl] 25 MG) PO SCH (10:00)
[2020-05-07] MEDS ORDERED: NORMAL SALINE 250 ML IV PRN (12:18)
--- NOTE | 2020-05-07 13:37 | PDOC DISCHARGE SUMMARY ---
General - Admit/Disc Date/PCP Admission Date/Primary Care Provider: 05/05/20 22:47 DELBERT MCLEAN PA-C Discharge Date: 05/07/20 - Discharge Diagnosis Final Diagnosis: RIGHT COLONIC INFLAMMATORY MASS - Assessment Summary: Is a 69-year-old male patient has a history of metastatic melanoma. Presents to the emergency room with about a week history of abdominal pain. Patient stated the pain started generalized and now migrated to the right lower quadrant CT scan the emergency room showed a large phlegmon in the right lower quadrant consistent with either inflammatory mass of the cecum or appendicitis that was perforated. He was admitted to hospital started on IV antibiotics his pain improved he underwent a colonoscopy which did not show an intra-lumen mass. Following day he continued to improve he was started on a full liquid diet which she tolerated well. His pain had resolved. We had a long discussion about how to manage this and I explained to him that he could have this managed laparoscopically after 2 to 3- week course of p.o. antibiotics and have the inflammatory mass decreased in size and then proceed with a diagnostic laparoscopy and appendectomy versus a planned exploratory laparotomy with possible ileocecectomy. The patient understood that there would be a delay in surgical treatment as we would give him a course of oral antibiotics to decrease the inflammatory mass in the right lower quadrant and should this proved to be a cancer there would be a 4 to 6-week delay however this has never been shown to increase mortality from metastatic cancer. Therefore the patient elects to undergo oral antibiotic treatment at home and will return to my office for discussions further on for laparoscopic exploration and appendectomy. He will be given a prescription for oral Flagyl and oral Bactrim DS and will return to my office in 1 week for further discussion. - Additional Information Resuscitation Status: Full Code Discharge Activity: Activity As Tolerated, Balance Activity w/Rest, No Lifting Over 10 Pounds Referrals: RIRI CASTRO MD [ACTIVE STAFF] - (Please arrange for appointment 2 weeks from time of discharge. Thanks. ) Prescriptions: Sulfamethoxazole/Trimethoprim [Bactrim Ds Tablet] 1 each PO Q12 14 Days #28 tablet Metronidazole [Flagyl 250 mg Tablet] 250 mg PO Q8 #21 tablet Home Medications: Divalproex Sodium [Depakote Sprinkle 125 Mg Capsule] 125 mg PO QAM 05/06/20 Divalproex Sodium [Depakote] 250 mg PO QPM 05/06/20 Lisinopril [Zestril] 10 mg PO DAILY 05/06/20 Sertraline HCl 25 mg PO DAILY 05/06/20 Simvastatin [Zocor 10 mg Tablet] 10 mg PO DAILY 05/06/20 Metronidazole [Flagyl 250 mg Tablet] 250 mg PO Q8 #21 tablet 05/07/20 Sulfamethoxazole/Trimethoprim [Bactrim Ds Tablet] 1 each PO Q12 14 Days #28 tablet 05/07/20 History of Present Illiness History of Present Illness: CLARA APARICIO is a 69 year old male Physical Exam Vital Signs: Temp Pulse Resp BP Pulse Ox 97.9 F 43 L 16 125/66 98 05/07/20 10:45 05/07/20 10:45 05/07/20 10:45 05/07/20 10:45 05/07/20 10:45 Intake & Output 05/06/20 05/07/20 05/08/20 06:59 06:59 06:59 Intake Total 1640 Output Total 400 Balance -400 1640 Weight 84.2 kg 84.2 kg Results Laboratory Results: WBC 13.1 10^3/uL (4.0-10.5) H 05/06/20 05:32 RBC 3.76 10^6/uL (4.35-5.55) L 05/06/20 05:32 Hgb 11.8 g/dL (13.5-17.0) L 05/06/20 05:32 Hct 34.1 % (37.9-51.0) L 05/06/20 05:32 MCV 91 fl (80-97) 05/06/20 05:32 MCH 31.5 pg (27.0-33.4) 05/06/20 05:32 MCHC 34.7 g/dL (32.0-36.0) 05/06/20 05:32 RDW 13.8 % (11.5-14.0) 05/06/20 05:32 Plt Count 107 10^3/uL (150-450) L 05/06/20 05:32 Lymph % (Auto) Not Reportable 05/06/20 05:32 Crisp % (Auto) Not Reportable 05/06/20 05:32 Eos % (Auto) Not Reportable 05/06/20 05:32 Baso % (Auto) Not Reportable 05/06/20 05:32 Absolute Neuts (auto) Not Reportable 05/06/20 05:32 Absolute Lymphs (auto) Not Reportable 05/06/20 05:32 Absolute Monos (auto) Not Reportable 05/06/20 05:32 Absolute Eos (auto) Not Reportable 05/06/20 05:32 Absolute Basos (auto) Not Reportable 05/06/20 05:32 Total Counted 100 05/06/20 05:32 Seg Neutrophils % Not Reportable 05/06/20 05:32 Seg Neuts % (Manual) 30 % (42-78) L 05/06/20 05:32 Lymphocytes % (Manual) 65 % (13-45) H 05/06/20 05:32 Atypical Lymphs % 3 % (0) 05/06/20 05:32 Monocytes % (Manual) 2 % (3-13) L 05/06/20 05:32 Eosinophils % (Manual) 0 % (0-6) 05/06/20 05:32 Basophils % (Manual) 0 % (0-2) 05/06/20 05:32 Abs Neuts (Manual) 3.9 10^3/uL (1.7-8.2) 05/06/20 05:32 Abs Lymphs (Manual) 8.9 10^3/uL (0.5-4.7) H 05/06/20 05:32 Abs Monocytes (Manual) 0.3 10^3/uL (0.1-1.4) 05/06/20 05:32 Absolute Eos (Manual) 0.0 10^3/uL (0.0-0.6) 05/06/20 05:32 Abs Basophils (Manual) 0.0 10^3/uL (0.0-0.2) 05/06/20 05:32 Toxic Granulation 1+ 05/06/20 05:32 Toxic Vacuolation PRESENT 05/06/20 05:32 Platelet Comment DECREASED 05/06/20 05:32 Polychromasia SLIGHT 05/05/20 16:21 Poikilocytosis SLIGHT 05/05/20 16:21 Tear Drop Cells SLIGHT 05/06/20 05:32 Ovalocytes SLIGHT 05/05/20 16:21 [place] Cells SLIGHT 05/06/20 05:32 Sodium 139.6 mmol/L (137-145) 05/07/20 05:41 Potassium 4.1 mmol/L (3.6-5.0) 05/07/20 05:41 Chloride 109 mmol/L (98-107) H 05/07/20 05:41 Carbon Dioxide 25 mmol/L (22-30) 05/07/20 05:41 Anion Gap 6 (5-19) 05/07/20 05:41 BUN 10 mg/dL (7-20) 05/07/20 05:41 Creatinine 0.85 mg/dL (0.52-1.25) 05/07/20 05:41 Est GFR ( Amer) > 60 (>60) 05/07/20 05:41 Est GFR (MDRD) Non-Af > 60 (>60) 05/07/20 05:41 Glucose 103 mg/dL (75-110) 05/07/20 05:41 Calcium 8.2 mg/dL (8.4-10.2) L 05/07/20 05:41 Total Bilirubin 0.9 mg/dL (0.2-1.3) 05/05/20 16:21 Direct Bilirubin 0.3 mg/dL (0.0-0.4) 05/05/20 16:21 Neonat Total Bilirubin Not Reportable 05/05/20 16:21 Neonat Direct Bilirubin Not Reportable 05/05/20 16:21 Neonat Indirect Bili Not Reportable 05/05/20 16:21 AST 29 U/L (17-59) 05/05/20 16:21 ALT 30 U/L (<50) 05/05/20 16:21 Alkaline Phosphatase 64 U/L (38-126) 05/05/20 16:21 Total Protein 6.0 g/dL (6.3-8.2) L 05/05/20 16:21 Albumin 3.9 g/dL (3.5-5.0) 05/05/20 16:21 Lipase 42.3 U/L (23-300) 05/05/20 16:21 Carcinoembryonic Ag 1.64 ng/mL (<3.0) 05/06/20 05:32 Urine Color YELLOW 05/05/20 16:21 Urine Appearance CLEAR 05/05/20 16:21 Urine pH 5.0 (5.0-9.0) 05/05/20 16:21 Ur Specific [place] 1.015 05/05/20 16:21 Urine Protein NEGATIVE mg/dL (NEGATIVE) 05/05/20 16:21 Urine Glucose (UA) NEGATIVE mg/dL (NEGATIVE) 05/05/20 16:21 Urine Ketones NEGATIVE mg/dL (NEGATIVE) 05/05/20 16:21 Urine Blood SMALL (NEGATIVE) H 05/05/20 16:21 Urine Nitrite NEGATIVE (NEGATIVE) 05/05/20 16:21 Urine Bilirubin NEGATIVE (NEGATIVE) 05/05/20 16:21 Urine Urobilinogen NEGATIVE mg/dL (<2.0) 05/05/20 16:21 Ur Leukocyte Esterase NEGATIVE (NEGATIVE) 05/05/20 16:21 Urine WBC (Auto) 0 /HPF 05/05/20 16:21 Urine RBC (Auto) 1 /HPF 05/05/20 16:21 Urine Mucus (Auto) RARE /LPF 05/05/20 16:21 Urine Ascorbic Acid NEGATIVE (NEGATIVE) 05/05/20 16:21 Slides for Path Review PATHOLOGIST REVIEWED 05/05/20 16:21 Blood Type A POSITIVE 05/06/20 14:19 Blood Type Confirm A POSITIVE 05/06/20 14:48 Antibody Screen TNP 05/06/20 14:19 Ab Screen Tube Method NEGATIVE 05/06/20 14:19 Crossmatch See Detail 05/06/20 14:19 Impressions: Abdomen/Pelvis CT 05/05/20 00:00 IMPRESSION: 1. Hepatosplenomegaly with nonspecific splenic lesion. 2. Lymphadenopathy within the splenic hilum and at the wes hepatis. There is also pelvic lymphadenopathy. 3. Abnormal appearance of the tip of the cecum which demonstrate marked bowel wall thickening with associated inflammation. This does extend to involve the appendix but the appendix is not well seen. Findings may represent acute appendicitis. Alternatively colon carcinoma might have this appearance. No perforation. No abscess. Chest X-Ray 05/05/20 23:23 IMPRESSION: Clear lungs.
[2020-05-07 13:44] VITALS: BP 120/58
[2020-05-07] MEDS ORDERED: SIMVASTATIN 10 MG TABLET PO SCH (22:00)
[2020-05-08] MEDS ORDERED: NEOMYCIN SULFATE 500 MG TABLET PO SCH (15:00)
[2020-05-08] MEDS ORDERED: ERYTHROMYCIN BASE 250 MG TABLET PO SCH (15:00)
[2020-05-09] MEDS ORDERED: CEFOXITIN INJ 2 GM VIAL IV ONE (08:00)
[2020-05-09] MEDS ORDERED: PEG 3350/NA SULF,BICARB,CL/KCL 4000 ML PO ONE (15:00)
== END 2020-05-07 14:45 | disposition home or self-care (01) | DRG 394 ==
LOC: ER 16:02 → EH 22:47 → 4S 05-06 00:11
PROVIDERS: ATTEND Surgery
PROC: 0DJD8ZZ Inspection of Lower Intestinal Tract, Via Natural or Artificial Opening Endoscopic (ICD-10-PCS; principal; 2020-05-06 12:00)
DX: K63.89 Other specified diseases of intestine (principal); C91.11 Chronic lymphocytic leukemia of B-cell type in remission; R10.31 Right lower quadrant pain; I10 Essential (primary) hypertension; D69.59 Other secondary thrombocytopenia; E78.5 Hyperlipidemia, unspecified; F31.9 Bipolar disorder, unspecified; Z85.820 Personal history of malignant melanoma of skin; Z80.0 Family history of malignant neoplasm of digestive organs; Z87.891 Personal history of nicotine dependence; Z92.21 Personal history of antineoplastic chemotherapy
CPT/HCPCS: 36415; 45378; 71046; 74177; 80048; 80053; 81001; 811; 82378; 83690; 85025; 86850; 86900; 86901; 86920; 94660; 96365; 99285; J0694; J2001; J2543; J2704; J3490; J7030; J7060

== ENCOUNTER → 2020-05-26 | Outpatient (CLI) | payer MEDICARE, OTHER ==
--- NOTE | 2020-05-26 13:53 | RADIOLOGY REPORT (SQ) ---
EXAM DESCRIPTION: CT ABD/PELVIS WITH IV ORAL IMAGES COMPLETED DATE/TIME: 05/26/2020 8:16 am REASON FOR STUDY: K37 UNSPECIFIED APPENDICITIS K37 UNSPECIFIED APPENDICITIS COMPARISON: 05/05/2020. TECHNIQUE: CT scan of the abdomen and pelvis performed with intravenous and oral contrast using usama ramila scanning technique with dynamic intravenous contrast injection. Images reviewed with lung, soft t issue, and bone windows. Reconstructed coronal and sagittal MPR images reviewed. Delayed images for e valuation of the urinary system also acquired. All images stored on PACS. All CT scanners at this facility use dose modulation, iterative reconstruction, and/or weight based d osing when appropriate to reduce radiation dose to as low as reasonably achievable (ALARA). [facility]: Dose Right [facility]: CareDose [facility]: Dose Right [facility]: Teradose 4D [facility]: Activation Life CONTRAST TYPE AND DOSE: contrast/concentration: Isovue 350.00 mmol/ml; Total Contrast Delivered: 80. 0 ml; Total Saline Delivered: 40.0 ml RENAL FUNCTION: BUN 10 creatinine 0.85. RADIATION DOSE: CT Rad equipment meets quality standard of care and radiation dose reduction techniq ues were employed. CTDIvol: 7.4 - 7.5 mGy. DLP: 748 mGy-cm. . LIMITATIONS: None. FINDINGS: LOWER CHEST: No significant findings. No nodules or infiltrates. LIVER: Normal size. No hepatic masses. A few mildly enlarged lymph nodes in the alirio hepatis are un changed. No dilated ducts. SPLEEN: Normal size. Again seen is a small indistinct low-attenuation lesion in the spleen. Mildly enlarged lymph nodes in the splenic hilum are unchanged. PANCREAS: No masses. No significant calcifications. No adjacent inflammation or peripancreatic fluid collections. Pancreatic duct not dilated. GALLBLADDER: No identified stones by CT criteria. No inflammatory changes to suggest cholecystitis. ADRENAL GLANDS: No significant masses or asymmetry. RIGHT KIDNEY AND URETER: No solid masses. No significant calcifications. No hydronephrosis or hyd roureter. LEFT KIDNEY AND URETER: No solid masses. No significant calcifications. No hydronephrosis or hydr oureter. AORTA AND VESSELS: No aneurysm. No dissection. Renal arteries, SMA, celiac without stenosis. RETROPERITONEUM: No retroperitoneal adenopathy, hemorrhage or masses. BOWEL AND PERITONEAL CAVITY: No obstruction. Previously seen inflammatory changes involving the cecu m and base of the appendix have improved. There is mild residual bowel wall thickening and minimal s tranding at the tip of the cecum. No abnormal fluid collection. No extraluminal gas. APPENDIX: Nondistended. PELVIS: No significant masses. Normal bladder. No free fluid. ABDOMINAL WALL: No masses. No hernias. BONES: No significant or acute findings. OTHER: No other significant finding. IMPRESSION: 1. INFLAMMATORY CHANGES INVOLVING THE CECUM AND BASE OF THE APPENDIX HAVE IMPROVED WITH MINIMAL RESID UAL INFLAMMATORY STRANDING AND BOWEL WALL THICKENING AT THE TIP OF THE CECUM. NO EVIDENCE OF ABSCESS . 2. MILD ADENOPATHY IN THE ALIRIO HEPATIS AND AT THE SPLENIC HILUM UNCHANGED. 3. SMALL INDISTINCT LOW-ATTENUATION LESION IN THE SPLEEN UNCHANGED. COULD BE A CYST OR HEMANGIOMA. 4. NO OTHER SIGNIFICANT OR ACUTE FINDINGS IN THE ABDOMEN OR PELVIS. TECHNICAL DOCUMENTATION: JOB ID: [id number] Quality ID # [id number]: Final reports with documentation of one or more dose reduction techniques (e.g., Au tomated exposure control, adjustment of the mA and/or kV according to patient size, use of iterative reconstruction technique) 2010 [employer]- All Rights Reserved Reading location - IP/workstation name: [email or web address]
== END ==
LOC: RAD 07:49
PROVIDERS: ATTEND Surgery
DX: K37 Unspecified appendicitis (principal)
CPT/HCPCS: 74177

== ENCOUNTER 2020-06-07 10:54 | Day surgery (SDC) | payer MEDICARE, OTHER ==
[~2020-06-07 10:54] MED LIST: CEFAZOLIN 2 GM/D5W RTU 2 GM/50 ML RTUPB IV PRN; DEXAMETHASONE SOD PHOSPHATE INJ 4 MG/1 ML VIAL ONE; FENTANYL CITRATE INJ/PF 100 MCG/2 ML AMPUL ONE; METRONIDAZOLE 500 MG/NS RTU 500 MG/100 ML RTUPB IV PRN; MIDAZOLAM 2 MG/2 ML INJ ONE; MORPHINE SULFATE 10 MG/ML INJ ONE; ONDANSETRON HCL INJ/PF 4 MG/2 ML SDV ONE; PROPOFOL INJ 200 MG/20 ML VIAL IV ONE; SUGAMMADEX SODIUM 200 MG/2 ML SDV IV ONE
[2020-06-07] MEDS ORDERED: EPHEDRINE SULFATE INJ 50 MG/1 ML AMPULE ONE (11:00)
[2020-06-07] MEDS ORDERED: METRONIDAZOLE 500 MG/NS RTU 500 MG/100 ML RTUPB IV ONE (12:37)
[2020-06-07] MEDS ORDERED: CEFAZOLIN 2 GM/D5W RTU 2 GM/50 ML RTUPB IV ONE (12:37)
[2020-06-07] MEDS ORDERED: LIDOCAINE 2% INJ-PF (20 MG/ML) 2 ML AMPUL ONE (13:53)
[2020-06-07] MEDS ORDERED: NEOSTIGMINE METHYLSULFATE 10 MG/10 ML VIAL ONE (13:53)
[2020-06-07] MEDS ORDERED: ROCURONIUM BROMIDE INJ 50 MG/5 ML VIAL IV ONE (13:53)
[2020-06-07] MEDS ORDERED: DEXAMETHASONE SOD PHOSPHATE INJ 4 MG/1 ML VIAL ONE (13:53)
[2020-06-07] MEDS ORDERED: KETOROLAC TROMETHAMINE 60 MG/2 ML SDV ONE (13:53)
[2020-06-07] MEDS ORDERED: GLYCOPYRROLATE 1 MG/5 ML VIAL ONE (13:53)
[2020-06-07] MEDS ORDERED: ONDANSETRON HCL INJ/PF 4 MG/2 ML SDV ONE (13:53)
[2020-06-07] MEDS ORDERED: SUCCINYLCHOLINE CHLORIDE INJ 200 MG/10 ML VIAL ONE (13:53)
[2020-06-07] MEDS ORDERED: BUPIVACAINE INJ/PF LIPOSOME/PF 266 MG/20 ML SDV ONE (15:36)
--- NOTE | 2020-06-07 16:48 | EKG REPORT ---
SEVERITY:- ABNORMAL ECG - SINUS BRADYCARDIA LEFT VENTRICULAR HYPERTROPHY : Confirmed by: Riki Cleveland MD 07-Jun-2020 16:48:35
[2020-06-07] MEDS ORDERED: OXYCODONE-ACETAMINOPHEN 5-325 MG TABLET PO PRN ×2 (17:20)
[2020-06-07] MEDS ORDERED: MORPHINE SULFATE 10 MG/ML INJ IV PRN (17:20)
[2020-06-07] MEDS ORDERED: MEPERIDINE HCL/PF INJ 25 MG/1 ML DISP.SYRIN IV PRN (17:20)
[2020-06-07] MEDS ORDERED: ONDANSETRON HCL INJ/PF 4 MG/2 ML SDV IV PRN (17:20)
[2020-06-07] MEDS ORDERED: PROMETHAZINE HCL INJ 25 MG/1 ML VIAL IV PRN (17:20)
[2020-06-07] MEDS ORDERED: DIPHENHYDRAMINE HCL 50 MG/ML VIAL IV PRN (17:20)
[2020-06-07] MEDS ORDERED: FENTANYL CITRATE INJ/PF 100 MCG/2 ML AMPUL IV PRN ×3 (17:20)
[2020-06-07] MEDS ORDERED: METHYLENE BLUE 50 MG/10 ML AMPULE ONE (17:29)
[2020-06-07] MEDS ORDERED: ATROPINE SULFATE INJ 1 MG/10 ML DISP.SYRIN IV ONE (18:30)
--- NOTE | 2020-06-07 18:50 | Operative Report ---
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 The abdomen was prepped draped usual sterile fashion for the procedure [place] catheter was placed. After appropriate timeout site verification procedure commenced. A varies needle was placed into the umbilicus and the abdomen was insufflated with 6 L of CO2 gas Infraumbilical 10 mm incision was made with a 15 blade and a 10 mm port placed in the abdominal cavity intra-abdominal visualization revealed no evidence of Veress needle or trocar injury. Left lower quadrant 5 mm port was placed under direct vision and a right sided upper abdominal 12 mm port all in direct vision. The cecum was adhesed to the anterior abdominal wall there was omentum adhesed to the cecum and the anterior abdominal wall using the LigaSure device we took this down freed up the adhesions and mobilized the cecum away from the right lateral peritoneal reflection. Once we did this we mobilized the dense adhesions of the distal appendix and cecum away from the pelvis and lateral peritoneum. At this point I made sure that I identified the right ureter as to not get it involved in the dissection. We once we identified the right ureter we mobilized the cecum from inferiorly to cephalad I took down a bit of the white line of [place] of the right colon I then identified the terminal ileum as it entered the cecum and I was able to come across the inferior aspect of the cecum above the entrance of the terminal ileum and amputate that and the appendix with 2 firings of the Endo KAMARI stapler with a blue load. Placed at an Endobag and removed through the right upper quadrant port site. then oversewed the staple line with [id number] placed 2-0 silk sutures. Once this was completed I checked again for the ureteral integrity and it was intact. The ports were then removed and the fascial defects in the umbilicus and the left upper quadrant were closed with 0 Vicryl and skin was closed with intracuticular 4-0 Biosyn Steri-Strips completed the procedure. Estimated blood loss was less than 50 cc sponge needle counts were correct x2 the patient was awakened in the operating extubated transferred recovery in stable condition no complications
--- NOTE | 2020-06-07 19:06 | Discharge Summary ---
Discharge Summary (SDC) - Discharge Final Diagnosis: History of ruptured appendicitis Date of Surgery: 06/07/20 Discharge Date: 06/07/20 Condition: Good Prescriptions: Oxycodone HCl/Acetaminophen [Percocet 10-325 Mg Tablet] 1 each PO Q6HP PRN #20 tablet PRN Reason: Referrals: DELBERT MCLEAN PA-C [Primary Care Provider] - Discharge Activity: Activity As Tolerated, No Lifting Over 10 Pounds Report the Following to Your Physician Immediately: Vomiting, Increase in Pain, Fever over 101 Degrees
[2020-06-07] MEDS ORDERED: OXYCODONE-ACETAMINOPHEN 5-325 MG TABLET ONE (19:13)
[2020-06-07] MEDS ORDERED: OXYCODONE HCL IR 5 MG TABLET ONE (19:14)
[2020-06-07] MEDS ORDERED: OXYCODONE HCL IR 5 MG TABLET PO ONE (19:45)
[2020-06-07] MEDS ORDERED: OXYCODONE-ACETAMINOPHEN 5-325 MG TABLET PO ONE (19:45)
[2020-06-07 19:52] VITALS: BP 163/68
== END 2020-06-07 20:05 | disposition home or self-care (01) ==
LOC: OROUT 10:54
PROVIDERS: ATTEND Surgery
DX: K35.33 Acute appendicitis with perforation, localized peritonitis, and gangrene, with abscess (principal); K38.8 Other specified diseases of appendix; K38.2 Diverticulum of appendix; I10 Essential (primary) hypertension; F31.9 Bipolar disorder, unspecified; K66.0 Peritoneal adhesions (postprocedural) (postinfection); E78.00 Pure hypercholesterolemia, unspecified; Z80.0 Family history of malignant neoplasm of digestive organs; Z79.899 Other long term (current) drug therapy; Z03.818 Encounter for observation for suspected exposure to other biological agents ruled out; Z85.79 Personal history of other malignant neoplasms of lymphoid, hematopoietic and related tissues; Z85.820 Personal history of malignant melanoma of skin; Z87.891 Personal history of nicotine dependence
CPT/HCPCS: 44970; 45399; 88304 ×2; 93005; 93010; 00840; U0003; J2250; J0461; J3490 ×6; J1100; J1885; J3010; J2710; A9270 ×2; J0330; J2405; J2704; J0690; C9290; Q9968; C9803; 840; 87635; J2270